=== PATIENT | male | born 1975 | race Caucasian/White ===

== ENCOUNTER 2017-12-24 20:57 | Emergency (ER) | payer SELFPAY ==
[2017-12-24 21:43] VITALS: O2SAT 97
--- NOTE | 2017-12-24 22:03 | EDPHY ---
H & P Stated Complaint: M1, CONFUSED [employer] [employer] [employer] Source: Patient - Personal History Current Tetanus/Diphtheria Vaccine: Unsure - Medical/Surgical History Hx Asthma: No Hx Chronic Respiratory Disease: No Hx Diabetes: No Hx Cardiac Disease: No Hx Renal Disease: No Hx Cirrhosis: No Hx Alcoholism: No Hx HIV/AIDS: No Hx Splenectomy or Spleen Trauma: No Other PMH: PSYCH - Social History Smoking Status: Never smoked Time Seen by Provider: 12/24/17 22:00 HPI/ROS: HPI CHIEF COMPLAINT: Acute psychosis HISTORY OF PRESENT ILLNESS: This patient is a 42-year-old male who presents emergency room by EMS on M1 hold for acute psychosis he was found outside the library acting strangely with psychotic type behavior. He tells me "Stop putting the lobsters in the boiling water, Jordy will do this" This patient appears disheveled. Unkept. He denies having any medical or surgical history. Past Medical History: Unknown medical history Past Surgical History: Unknown Social History: Unknown Family History: Unknown ROS REVIEW OF SYSTEMS: With due to patient's mental state Exam Constitutional acutely psychotic. triage nursing summary reviewed, vital signs reviewed, awake/alert. Eyes normal conjunctivae and sclera, EOMI, PERRLA. HENT normal inspection, atraumatic, moist mucus membranes, no epistaxis, neck supple/ no meningismus, no raccoon eyes. Respiratory clear to auscultation bilaterally, normal breath sounds, no respiratory distress, no wheezing. Cardiovascular rate normal, regular rhythm, no murmur, no edema, distal pulses normal. Gastrointestinal soft, non-tender, no rebound, no guarding, normal bowel sounds, no distension, no pulsatile mass. Genitourinary no CVA tenderness. Musculoskeletal no midline vertebral tenderness, full range of motion, no calf swelling, no tenderness of extremities, no meningismus, good pulses, neurovascularly intact. Skin pink, warm, & dry, no rash, skin atraumatic. Neurologic alert or x1, moves all 4 extremities equally, motor intact, sensory intact, CN II-XII intact, normal cerebellar, normal vision, normal speech. Psychiatric acute psychosis Heme/Lymph/Immune no lymphadenopathy. Differential Diagnosis: Includes but is not to in a particular order acute psychosis, drug intoxication, mood disorder, bipolar disorder, schizophrenia Medical Decision Making: Plan for this patient blood draw for medical clearance , 10 mg p.o. Zyprexa. Patient need mental health evaluation. Patient is on M1 hold. Re-evaluation: 0456: Patient has had a mental health evaluation. They would like to hospitalize the patient inpatient psychiatric facility. The are performing a bed search at this time. 0648: No acute events overnight. Patient resting. Patient on M1 hold for acute psychosis. Painting inpatient psychiatric hospitalization. 07: Patient signed over to Dr. Paris. (Nathan Baig) Constitutional: Initial Vital Signs Temperature (C) 37.0 C 12/24/17 20:51 Heart Rate 105 H 12/24/17 20:51 Respiratory Rate 20 12/24/17 20:51 Blood Pressure 142/85 H 12/24/17 20:51 O2 Sat (%) 97 12/24/17 20:51 O2 Delivery Mode Room Air Allergies/Adverse Reactions: 'ALL MEDS' Allergy (Uncoded 12/24/17 22:32) NEEDLES Allergy (Uncoded 12/24/17 22:31) Medical Decision Making Other Provider: Informed by Romie from [facility] at 9:20 a.m. that patient has been accepted at [place] by Dr. Betancourt. Patient was transferred to [facility] without further issues. (Mirta Paris) - Data Points Laboratory Results: Laboratory Results 12/24/17 22:05 12/24/17 22:05 Medications Given: Discontinued Medications Olanzapine (Olanzapine) 10 mg PO ONCE ONE Stop: 12/24/17 22:05 Last Admin: 12/24/17 23:30 Dose: 10 mg Departure - Departure Disposition: Other Psych, Not [facility] Clinical Impression: Acute psychosis Condition: Fair Referrals: Patient,NotPresent [Unknown] - As per Instructions
[2017-12-24] MEDS ORDERED: OLANZapine 5 MG TAB PO ONE (22:04)
[2017-12-24 22:21] LABS: PLATELET COUNT 269 10^3/uL (150-400)
[2017-12-25 13:26] VITALS: BP 110/70; PULSE 70; RESP 12; TEMP 97.5
== END 2017-12-25 13:26 ==
DX: F23 Brief psychotic disorder (principal)
CPT/HCPCS: 80305; G0480